=== PATIENT | male | born 1965 ===

== ENCOUNTER → 2025-01-23 08:32 | Outpatient (REF) | payer OTHER, SELFPAY | LOC: MRI 3T 08:32 | PROVIDERS: ATTENDING PHYSICIAN Specialist; FAMILY PHYSICIAN Family Medicine | DX: C61 Malignant neoplasm of prostate (principal) | CPT/HCPCS: 72197; A9575 ==

== ENCOUNTER → 2025-03-28 12:10 | Outpatient (REF) | payer OTHER, SELFPAY | LOC: PET 12:10 | PROVIDERS: ATTENDING PHYSICIAN Surgery | DX: C61 Malignant neoplasm of prostate (principal) | CPT/HCPCS: 78815; A9595 ==